=== PATIENT | female | born 1935 ===

== ENCOUNTER 2020-09-13 08:39 | Inpatient (IN) | payer OTHER ==
[~2020-09-13] VITALS: Ht 167.6 cm; Wt 52.2 kg
[2020-09-13] MEDS ORDERED: LEVOTHYROXINE25 MCG (08:53)
[2020-10-04] MEDS ORDERED: METOLAZONE5 MG PO (15:52)
[2020-10-04] MEDS ORDERED: VITAMIN B125000 MCG PO (15:52)
[2020-10-04] MEDS ORDERED: LEVOTHYROXINE25 MCG PO (15:52)
[2020-10-04] MEDS ORDERED: PRE PROTEIN1 EACH PO (15:52)
[2020-10-04] MEDS ORDERED: PROTONIX40 MG PO (15:52)
[2020-10-04] MEDS ORDERED: FOLIC ACID0.8 M1 PO (15:52)
== END 2020-10-04 16:19 | disposition home or self-care (01) | DRG 420 ==
LOC: ER 08:39 → SEC-K 19:17 → MEDI 19:17 → ICU 19:17 → MEDI 09-14 14:28 → ICU 09-26 14:36 → MEDI 09-27 13:52
PROVIDERS: Surgery; ADMIT Internal Medicine; ATTEND Internal Medicine
PROC: 4A12X4Z Monitoring of Cardiac Electrical Activity, External Approach (ICD-10-PCS; 2020-09-14)
PROC: 02HV33Z Insertion of Infusion Device into Superior Vena Cava, Percutaneous Approach (ICD-10-PCS; 2020-09-15)
PROC: 0DJ08ZZ Inspection of Upper Intestinal Tract, Via Natural or Artificial Opening Endoscopic (ICD-10-PCS; 2020-09-17)
PROC: 0DB78ZX Excision of Stomach, Pylorus, Via Natural or Artificial Opening Endoscopic, Diagnostic (ICD-10-PCS; 2020-09-20)
PROC: 0DHA4UZ Insertion of Feeding Device into Jejunum, Percutaneous Endoscopic Approach (ICD-10-PCS; 2020-09-20)
PROC: 0DB78ZX Excision of Stomach, Pylorus, Via Natural or Artificial Opening Endoscopic, Diagnostic (ICD-10-PCS; 2020-09-25)
PROC: 0D164ZA Bypass Stomach to Jejunum, Percutaneous Endoscopic Approach (ICD-10-PCS; 2020-09-26)
PROC: 0BH17EZ Insertion of Endotracheal Airway into Trachea, Via Natural or Artificial Opening (ICD-10-PCS; 2020-09-26)
PROC: 5A1955Z Respiratory Ventilation, Greater than 96 Consecutive Hours (ICD-10-PCS; 2020-09-26)
PROC: 0FB04ZX Excision of Liver, Percutaneous Endoscopic Approach, Diagnostic (ICD-10-PCS; principal; 2020-09-26 17:30)
DX: C78.7 Secondary malignant neoplasm of liver and intrahepatic bile duct (principal); J96.00 Acute respiratory failure, unspecified whether with hypoxia or hypercapnia; K31.1 Adult hypertrophic pyloric stenosis; J98.11 Atelectasis; C78.6 Secondary malignant neoplasm of retroperitoneum and peritoneum; C7A.8 Other malignant neuroendocrine tumors; I35.0 Nonrheumatic aortic (valve) stenosis; E53.8 Deficiency of other specified B group vitamins; E86.0 Dehydration; E03.8 Other specified hypothyroidism; E87.6 Hypokalemia
CPT/HCPCS: 74185